=== PATIENT | female | born 1960 | race Caucasian/White ===

== ENCOUNTER 2016-10-11 11:53 | Day surgery (SDC) | payer OTHER ==
[2016-10-06 12:15] LABS: PFA (COL/EPI) 76 SEC (72-180)
[2016-10-06 12:31] LABS: BASOPHILS 0.6 %; BASOPHILS ABSOLUTE 0.03 10/3/uL (0.0-0.16); EOSINOPHILS 4.3 %; EOSINOPHILS ABSOLUTE 0.21 10/3/uL (0.0-0.53); LYMPHOCYTES 39.8 %; LYMPHOCYTES ABSOLUTE 1.93 10/3/uL (0.67-4.30); MEAN CORPUS HGB CONC 33.2 g/dL (32.0-36.0); MEAN CORPUSCULAR HEMOGLOB 28.2 pg (26.0-34.0); MEAN CORPUSCULAR VOLUME 84.7 fL (80-100); MEAN PLATELET VOLUME 9.8 fL (9.2-13.0); MONOCYTES 9.5 %; MONOCYTES ABSOLUTE 0.46 10/3/uL (0.21-1.20); NEUTROPHILS 45.8 %; NEUTROPHILS ABSOLUTE 2.22 10/3/uL (2.02-8.40); PLATELET COUNT 275 10/3/uL (150-400); RBC DISTRIBUTION WIDTH 12.7 % (12.0-16.0); RED CELL COUNT 4.19 10/6/uL (4.0-5.6)
[2016-10-06 12:32] LABS: HEMATOCRIT 35.5 % (36.0-48.0); HEMOGLOBIN 11.8 g/dL (12.0-16.0); MANUAL DIFF NO %; WHITE BLOOD CELLS 4.9 10/3/uL (4.5-10.5)
[2016-10-06 12:45] LABS: CALCIUM, SERUM 9.5 MG/DL (8.5-10.4); CHLORIDE, SERUM 109 MMOL/L (96-112); CREATININE 1.08 MG/DL (0.55-1.02); GFR AFRICAN AMERICAN 67 ML/MIN (>=60); GFR NON AFRICAN AMERICAN 58 ML/MIN (>=60); GLUCOSE, SERUM 94 MG/DL (60-99); POTASSIUM, SERUM 3.9 MMOL/L (3.5-5.3); SODIUM, SERUM 140 MMOL/L (135-148)
[2016-10-06 12:46] LABS: BUN (BLOOD UREA NITROGEN) 18 MG/DL (6-23); CO2 (CARBON DIOXIDE) 23 MMOL/L (24-34)
[2016-10-06 12:52] LABS: ASCORBIC ACID (UR NOT ORDER) NEG (NEG); BILIRUBIN, URINE NEGATIVE (NEG); KETONE, URINE NEGATIVE (NEG); LEUKOCYTE ESTERASE(NOT OR NEG (NEG); WBC (NOT ORDERED) (RFLEX) < 1 (0-5)
--- NOTE | ~2016-10-11 | OP ---
Record Of Operation [facility] [address] [place]. [address] NAME: ODESSA NAVA : 64 STATUS : [facility]#: [id number] AGE: 56 ADM/REG DATE : 10/11/16 MR#: [id number] REPORT SERV DATE: 10/11/16 DICTATED BY: ISA SUN DATE: 10/11/16 REPORT STATUS : Draft TRANSCRIBED BY: MODL DATE: 10/11/16 DATE OF PROCEDURE: 10/11/2016 PREOPERATIVE DIAGNOSIS: Left renal stone. POSTOPERATIVE DIAGNOSIS: Left renal stone. PROCEDURE: Left extracorporeal shock wave lithotripsy. SURGEON: Ias Sun M.D. ANESTHESIA: MAC. SPECIMENS: None. ESTIMATED BLOOD LOSS: None. DISPOSITION: To Day Surgery in good condition. HISTORY: This is a 56-year-old woman with a left renal stone located across from L2-L3 interspace, approximately 7 mm in size. She presents today for treatment. PROCEDURE IN DETAIL: After consent was obtained, the patient was taken to the lithotripsy table and placed on the table in a supine position. The Dornier Relax machine was used. Her stone was located on two planes. MAC anesthesia was induced. She then received 3000 shocks at a maximum energy level of 3. The stone responded well. She was awakened from her anesthetic and taken to phase 2 in good condition. POSTOP PLAN: Plan will be to send her home today and see her back in two to three weeks with KUB. She was sent home with prescription for RUDY #40, Percocet 7.5 #30, ondansetron #15, and levofloxacin #2 to start tomorrow. She was also given a postural drainage sheet. LAVERN/RENETTA Isa Sun M.D. / [id number] CC: Isa Sun M.D.
[~2016-10-11 11:53] MED LIST: ACET500CAP PO; CENTRUM PO; EXCEDRIN EXTRA1 EACH PO; FLAG500TAB PO; LEVAQUIN750 MG PO; LEVSINTAB PO; MACRODANTIN 10100 MG PO; MULTIVIT/MIN PO; T PO; UNISOM25 MG PO; USTELL PO; XYZAL5 MG PO; ZYRTEC ALLGY10 MG PO
== END 2016-10-11 18:20 | disposition home or self-care (01) ==
LOC: SDC 11:53
PROVIDERS: Urology
PROC: 0TF4XZZ Fragmentation in Left Kidney Pelvis, External Approach (ICD-10-PCS; principal; 2016-10-11 14:00)
DX: N20.0 Calculus of kidney (principal); K52.9 Noninfective gastroenteritis and colitis, unspecified; Z88.1 Allergy status to other antibiotic agents; Z79.899 Other long term (current) drug therapy; Z98.890 Other specified postprocedural states
CPT/HCPCS: 50590; 74000; 80048; 81001; 85025; 85576; 93005; J2250; J2270; J2405; J3010